=== PATIENT | male | born 1945 | race Caucasian/White ===

== ENCOUNTER 2017-05-29 14:03 | Inpatient (IN) | payer OTHER ==
[2017-05-29] MEDS ORDERED: PERCOCET TAB 5/325 MG PO PRN (16:21)
[2017-05-29] MEDS ORDERED: PHENERGAN INJ 25 MG IVP PRN (16:21)
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
[2017-05-29 16:49] VITALS: BMI 31.9
[2017-05-29 16:59] LABS: BASOPHILS % (AUTO) 0.4 % (0.2-1.0); EOSINOPHILS # (AUTO) 0.1 x10^3/uL (0.0-0.2); EOSINOPHILS % (AUTO) 1.4 % (0.9-2.9); HEMATOCRIT 44.3 % (42.0-54.0); HEMOGLOBIN 15.2 g/dL (13.5-18.0); LYMPHOCYTES # (AUTO) 1.1 X10^3/uL (1.3-2.9); LYMPHOCYTES % (AUTO) 24.5 % (21.0-51.0); MEAN CORPUSCULAR HEMOGLOBIN 31.9 pg (27.0-34.0); MEAN CORPUSCULAR HGB CONC 34.2 g/dL (33.0-35.0); MEAN CORPUSCULAR VOLUME 93.2 fL (80.0-100.0); MONOCYTES # (AUTO) 0.9 x10^3/uL (0.3-0.8); MONOCYTES % (AUTO) 18.8 % (0.0-13.0); NEUTROPHILS # (AUTO) 2.6 x10^3/uL (2.2-4.8); NEUTROPHILS % (AUTO) 54.9 % (42.0-75.0); PLATELET COUNT 128 X10^3/uL (150.0-450.0); RED BLOOD COUNT 4.75 X10^6/uL (4.7-6.0); RED CELL DISTRIBUTION WIDTH 14.4 % (11.6-16.5); WHITE BLOOD COUNT 4.7 X10^3/uL (3.6-10.0)
[2017-05-29 17:02] LABS: ALBUMIN 3.1 g/dL (3.4-5.0); CALCIUM 8.1 mg/dL (8.5-10.1); CARBON DIOXIDE 25.6 mmol/L (21-32); COR CA(FOR HYPOALB) 8.8 mg/dL (8.5-10.1); CREATININE 2.63 mg/dL (0.70-1.30); TOTAL PROTEIN 7.1 g/dL (6.4-8.2)
[2017-05-29] MEDS: NS 1000 ML 1,000 ML IV SCH (17:21)
[2017-05-29] MEDS: MORPHINE SULFATE INJ 2 MG INJ IVP PRN ×2 (18:05→22:48)
[2017-05-29] MEDS: ZOFRAN INJ 4 MG VIAL IVP PRN (18:06)
[2017-05-29] MEDS ORDERED: BENTYL CAP 10 MG PO PRN (20:14)
[2017-05-29] MEDS ORDERED: PHENERGAN TAB 25 MG PO PRN (20:14)
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
[2017-05-29] MEDS: COREG TAB 6.25 MG PO SCH (22:49)
[2017-05-30] MEDS: NS 1000 ML 1,000 ML IV SCH ×3 (03:31→21:04)
[2017-05-30 05:32] LABS: ALBUMIN 2.8 g/dL (3.4-5.0); CALCIUM 7.7 mg/dL (8.5-10.1); CARBON DIOXIDE 22.4 mmol/L (21-32); COR CA(FOR HYPOALB) 8.7 mg/dL (8.5-10.1); CREATININE 2.14 mg/dL (0.70-1.30); TOTAL PROTEIN 6.6 g/dL (6.4-8.2)
[2017-05-30 05:41] LABS: BASOPHILS % (AUTO) 0.4 % (0.2-1.0); EOSINOPHILS # (AUTO) 0.1 x10^3/uL (0.0-0.2); EOSINOPHILS % (AUTO) 2.1 % (0.9-2.9); HEMATOCRIT 41.2 % (42.0-54.0); HEMOGLOBIN 14.2 g/dL (13.5-18.0); LYMPHOCYTES # (AUTO) 1.4 X10^3/uL (1.3-2.9); LYMPHOCYTES % (AUTO) 27.6 % (21.0-51.0); MEAN CORPUSCULAR HEMOGLOBIN 31.7 pg (27.0-34.0); MEAN CORPUSCULAR HGB CONC 34.4 g/dL (33.0-35.0); MEAN CORPUSCULAR VOLUME 92.1 fL (80.0-100.0); MEAN PLATELET VOLUME 9.3 fL (7.4-11.0); MONOCYTES # (AUTO) 1.1 x10^3/uL (0.3-0.8); NEUTROPHILS # (AUTO) 2.4 x10^3/uL (2.2-4.8); NEUTROPHILS % (AUTO) 47.9 % (42.0-75.0); PLATELET COUNT 138 X10^3/uL (150.0-450.0); RED BLOOD COUNT 4.47 X10^6/uL (4.7-6.0); RED CELL DISTRIBUTION WIDTH 14.2 % (11.6-16.5)
[2017-05-30 06:22] LABS: BAND NEUTROPHILS % 13 % (0-10); PLATELET MORPHOLOGY COMMENT NORMAL (NORMAL)
[2017-05-30 07:42] LABS: BILIRUBIN,URINE NEGATIVE (NEGATIVE); BLOOD/HEMOGLOBIN,URINE 2+ (NEGATIVE); GLUCOSE, URINE NEGATIVE (NEGATIVE); KETONES,URINE NEGATIVE (NEGATIVE); LEUKOCYTE ESTERASE ,URINE NEGATIVE (NEGATIVE); NITRITES,URINE NEGATIVE (NEGATIVE); PROTEIN,URINE 4+ (NEGATIVE); UROBILINOGEN,URINE NORMAL (NORMAL)
[2017-05-30 07:53] LABS: APPEARANCE,URINE SLIGHTLY HAZY (CLEAR); BACTERIA,URINE TRACE /HPF (NEGATIVE); COLOR,URINE YELLOW (YELLOW); GRANULAR CASTS,URINE FEW /LPF (NEGATIVE); RBC,URINE 0-3 /HPF (NEGATIVE); SQUAMOUS EPITHELIAL CELL,UR RARE /HPF (NEGATIVE)
[2017-05-30] MEDS: COREG TAB 6.25 MG PO SCH ×2 (08:18→21:05)
[2017-05-30] MEDS: LASIX PO SCH (08:18)
[2017-05-30] MEDS: ZOFRAN INJ 4 MG VIAL IVP PRN (08:18)
[2017-05-30] MEDS: NORVASC TAB 5 MG PO SCH (08:18)
[2017-05-30] MEDS: MORPHINE SULFATE INJ 2 MG INJ IVP PRN ×2 (08:18→21:06)
[2017-05-30] MEDS ORDERED: PROTONIX TAB 40 MG PO SCH (09:00)
[2017-05-30] MEDS ORDERED: PATIENT'S HOME MEDICATION (Rosuvastatin Calcium [Rosuvastatin Calcium] 1 TAB) PO SCH (09:00)
[2017-05-30] MEDS: PREVACID PO SCH (10:41)
[2017-05-30] MEDS: CRESTOR TAB 10 MG PO SCH (10:41)
[2017-05-30] MEDS: ASPIRIN EC 81 MG PO SCH (10:41)
[2017-05-30] MEDS: ZYLOPRIM PO SCH (10:42)
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
[2017-05-31] MEDS: NS 1000 ML 1,000 ML IV SCH ×3 (01:14→22:01)
[2017-05-31] MEDS: SNACK - Diabetic Appropriate PO SCH ×2 (01:14→21:58)
[2017-05-31] MEDS: MORPHINE SULFATE INJ 2 MG INJ IVP PRN ×2 (04:57→12:07)
[2017-05-31 05:39] LABS: ALBUMIN 2.6 g/dL (3.4-5.0); CALCIUM 7.8 mg/dL (8.5-10.1); CARBON DIOXIDE 26.4 mmol/L (21-32); COR CA(FOR HYPOALB) 8.9 mg/dL (8.5-10.1); CREATININE 1.94 mg/dL (0.70-1.30); TOTAL PROTEIN 6.4 g/dL (6.4-8.2)
[2017-05-31 06:09] LABS: BASOPHILS % (AUTO) 0.2 % (0.2-1.0); EOSINOPHILS # (AUTO) 0.1 x10^3/uL (0.0-0.2); EOSINOPHILS % (AUTO) 1.1 % (0.9-2.9); HEMATOCRIT 40.3 % (42.0-54.0); HEMOGLOBIN 13.7 g/dL (13.5-18.0); LYMPHOCYTES # (AUTO) 1.4 X10^3/uL (1.3-2.9); LYMPHOCYTES % (AUTO) 23.1 % (21.0-51.0); MEAN CORPUSCULAR HEMOGLOBIN 31.5 pg (27.0-34.0); MEAN CORPUSCULAR HGB CONC 34.1 g/dL (33.0-35.0); MEAN CORPUSCULAR VOLUME 92.2 fL (80.0-100.0); MEAN PLATELET VOLUME 9.1 fL (7.4-11.0); MONOCYTES # (AUTO) 0.9 x10^3/uL (0.3-0.8); NEUTROPHILS # (AUTO) 3.5 x10^3/uL (2.2-4.8); NEUTROPHILS % (AUTO) 59.6 % (42.0-75.0); PLATELET COUNT 145 X10^3/uL (150.0-450.0); RED BLOOD COUNT 4.37 X10^6/uL (4.7-6.0); RED CELL DISTRIBUTION WIDTH 14.5 % (11.6-16.5); WHITE BLOOD COUNT 5.8 X10^3/uL (3.6-10.0)
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
[2017-05-31] MEDS: CRESTOR TAB 10 MG PO SCH (09:34)
[2017-05-31] MEDS: PREVACID PO SCH (09:34)
[2017-05-31] MEDS: LASIX PO SCH (09:34)
[2017-05-31] MEDS: NORVASC TAB 5 MG PO SCH (09:35)
[2017-05-31] MEDS: COREG TAB 6.25 MG PO SCH ×2 (09:35→21:55)
[2017-05-31] MEDS: ASPIRIN EC 81 MG PO SCH (09:35)
[2017-05-31] MEDS: ZYLOPRIM PO SCH (09:35)
[2017-05-31] MEDS: ZOFRAN INJ 4 MG VIAL IVP PRN (12:07)
[2017-05-31] MEDS: MYLICON TAB 80 MG CHEW PO SCH (21:54)
[2017-05-31] MEDS: PROTONIX INJ 40 MG VIAL IVP SCH ×2 (21:54)
[2017-06-01] MEDS: MYLICON TAB 80 MG CHEW PO SCH ×4 (02:47→21:05)
[2017-06-01 05:10] LABS: ALBUMIN 2.4 g/dL (3.4-5.0); CALCIUM 7.5 mg/dL (8.5-10.1); CARBON DIOXIDE 21.4 mmol/L (21-32); COR CA(FOR HYPOALB) 8.8 mg/dL (8.5-10.1); CREATININE 1.75 mg/dL (0.70-1.30); TOTAL PROTEIN 5.7 g/dL (6.4-8.2)
[2017-06-01 05:22] LABS: BASOPHILS % (AUTO) 0.4 % (0.2-1.0); EOSINOPHILS # (AUTO) 0.1 x10^3/uL (0.0-0.2); EOSINOPHILS % (AUTO) 1.1 % (0.9-2.9); HEMOGLOBIN 12.6 g/dL (13.5-18.0); LYMPHOCYTES # (AUTO) 1.7 X10^3/uL (1.3-2.9); LYMPHOCYTES % (AUTO) 22.7 % (21.0-51.0); MEAN CORPUSCULAR HEMOGLOBIN 31.7 pg (27.0-34.0); MEAN PLATELET VOLUME 8.8 fL (7.4-11.0); MONOCYTES % (AUTO) 13.6 % (0.0-13.0); NEUTROPHILS # (AUTO) 4.6 x10^3/uL (2.2-4.8); NEUTROPHILS % (AUTO) 62.2 % (42.0-75.0); PLATELET COUNT 157 X10^3/uL (150.0-450.0); RED BLOOD COUNT 3.98 X10^6/uL (4.7-6.0); RED CELL DISTRIBUTION WIDTH 14.4 % (11.6-16.5); WHITE BLOOD COUNT 7.4 X10^3/uL (3.6-10.0)
[2017-06-01] MEDS: NS 1000 ML 1,000 ML IV SCH ×3 (05:46→16:59)
[2017-06-01] MEDS: COREG TAB 6.25 MG PO SCH ×2 (08:34→20:59)
[2017-06-01] MEDS: CRESTOR TAB 10 MG PO SCH (08:34)
[2017-06-01] MEDS: ASPIRIN EC 81 MG PO SCH (08:34)
[2017-06-01] MEDS: NORVASC TAB 5 MG PO SCH (08:35)
[2017-06-01] MEDS: LASIX PO SCH (08:35)
[2017-06-01] MEDS: PROTONIX INJ 40 MG VIAL IVP SCH ×2 (08:35→21:01)
[2017-06-01] MEDS: ZYLOPRIM PO SCH (08:35)
[2017-06-01] MEDS: MORPHINE SULFATE INJ 2 MG INJ IVP PRN (16:39)
[2017-06-01] MEDS: SNACK - Diabetic Appropriate PO SCH (21:13)
--- NOTE | 2017-06-01 22:28 | PCM.PROG ---
Progress Note - Progress Note for Day of Date: 05/31/17 - Subjective Subjective: IS A PATIENT OF WHO WAS ADMITTED FOR ABDOMINAL PAIN. A CT ABD/PELVIS REPORTED SMALL BOWEL OBSTRUCTION. HE IS ALERT AND ORIENTED, LYING IN BED ON MORNING ROUNDS. HE IS NOTED WITH COMPLAINTS OF CONTINUED ABDOMINAL PAIN, HOWEVER, REPORTS FEELING BETTER THAN HE DID ON ADMISSION. PATIENTS IS AT BEDSIDE. ON EXAMINATION, LUNGS ARE CLEAR TO AUSCULTATION. ABDOMEN IS DISTENDED AND TENDER ON PALPATION. BOWEL SOUNDS ARE NOTED HYPERACTIVE IN ALL QUADRANTS. HE DENIES NAUSEA OR VOMITING. WE DISCUSSED WITH PATIENT RESULTS OF CT AND MRCP. WE DISCUSSED CONSULTING GENERAL SURGERY. PATIENT REPORTED THAT IF HE NEEDED SURGERY, HE WOULD LIKE TO BE TRANSFERRED TO IN [place]. PATIENT REPORTS THAT HAS PERFORMED HIS SURGERIES IN THE PAST. WE WILL NOT CONSULT AT THIS TIME. VITALS THIS AM ARE 97.9 -69-18-96%-154/76. LABS AND XRAY WERE OBTAINED. ABNORMAL LAB VALUES INCLUDE THE FOLLOWING: RBC 4.37, HCT 40.3, PLT COUNT 145, BUN 32, CREATININE 1.94, GLUCOSE 138, CALCIUM 7.8, TOTAL BILI 1.40, ALK PHOS 45, ALBUMIN 2.6. ABDOMEN XRAY REPORTED PARTIAL SMALL BOWEL OBSTRUCTION. WE WILL CONTINUE CURRENT PLAN OF CARE. WE PLAN TO RECHECK AM LABS AND CONTINUE TO MONITOR PATIENT. - Past Medical Family Social History Past Med/Fam/Surg Hx: No changes since H&P Allergies: Allergies iodine Allergy (Verified 05/29/17 16:29) - Review of Systems ROS: No change since H&P - Vital Signs and I&O's Vital Signs: Temperature 98.7 F Pulse Rate [Left Radial] 68 Respiratory Rate 18 Blood Pressure [Left Arm] 157/74 O2 Sat by Pulse Oximetry 94 Intake and Output: Intake & Output 05/30/17 05/31/17 06/01/17 06/02/17 11:59 11:59 11:59 11:59 Intake Total 1236 1040 540 240 Balance 1236 1040 540 240 - Physical Exam Oriented: Normal Eyes: Normal Ear: Normal Nose: Normal Throat: Normal Respiratory: Normal Cardiovascular: Normal : Normal Auscultation: Bowel Sounds: Increased, High Pitched Palpation: Normal Tenderness: Diffuse, Moderate Skin: Normal Musculoskeletal: Normal Psychiatric: Normal Mood Description: Calm Affect: Normal Speech Pattern: Clear, Appropriate - Laboratory and Diagnostics Result Diagrams: 06/01/17 04:25 06/01/17 04:25 Labs: Laboratory WBC 7.4 X10^3/uL (3.6-10.0) 06/01/17 04:25 RBC 3.98 X10^6/uL (4.7-6.0) L 06/01/17 04:25 Hgb 12.6 g/dL (13.5-18.0) L 06/01/17 04:25 Hct 37.0 % (42.0-54.0) L 06/01/17 04:25 MCV 93.0 fL (80.0-100.0) 06/01/17 04:25 MCH 31.7 pg (27.0-34.0) 06/01/17 04:25 MCHC 34.0 g/dL (33.0-35.0) 06/01/17 04:25 RDW 14.4 % (11.6-16.5) 06/01/17 04:25 Plt Count 157 X10^3/uL (150.0-450.0) 06/01/17 04:25 Plt Count Comment Adequate (ADEQUATE) 05/30/17 03:55 MPV 8.8 fL (7.4-11.0) 06/01/17 04:25 Neut % 62.2 % (42.0-75.0) 06/01/17 04:25 Lymph % 22.7 % (21.0-51.0) 06/01/17 04:25 [place] % 13.6 % (0.0-13.0) H 06/01/17 04:25 Eos % 1.1 % (0.9-2.9) 06/01/17 04:25 Baso % 0.4 % (0.2-1.0) 06/01/17 04:25 Neut # 4.6 x10^3/uL (2.2-4.8) 06/01/17 04:25 Lymph # 1.7 X10^3/uL (1.3-2.9) 06/01/17 04:25 [place] # 1.0 x10^3/uL (0.3-0.8) H 06/01/17 04:25 Eos # 0.1 x10^3/uL (0.0-0.2) 06/01/17 04:25 Baso # 0.0 X10^3/uL (0.0-0.1) 06/01/17 04:25 Absolute Nucleated RBC 0.1 /100WBC 06/01/17 04:25 Total Counted 100 05/30/17 03:55 Neutrophils % (Manual) 29 % (39-76) L 05/30/17 03:55 Band Neutrophils % 13 % (0-10) H 05/30/17 03:55 Lymphocytes % (Manual) 41 % (13-43) 05/30/17 03:55 Monocytes % (Manual) 13 % (4-9) H 05/30/17 03:55 Eosinophils % (Manual) 4 % (0-6) 05/30/17 03:55 Plt Morphology Comment Normal (NORMAL) 05/30/17 03:55 RBC Morphology Normal (NORMAL) 05/30/17 03:55 Sodium 141 mmol/L (136-145) 06/01/17 04:25 Corrected Sodium 142 mmol/L (136-145) 06/01/17 04:25 Potassium 4.1 mmol/L (3.5-5.1) 06/01/17 04:25 Chloride 110 mmol/L (98-107) H 06/01/17 04:25 Carbon Dioxide 21.4 mmol/L (21-32) 06/01/17 04:25 BUN 26 mg/dL (7-18) H 06/01/17 04:25 Creatinine 1.75 mg/dL (0.70-1.30) H 06/01/17 04:25 Est GFR (MDRD) Af Amer 50 (>60) L 06/01/17 04:25 Est GFR (MDRD) Non-Af 41 (>60) L 06/01/17 04:25 Glucose 129 mg/dL (65-99) H 06/01/17 04:25 POC Glucose (mg/dL) 126 mg/dL (65-99) H 05/30/17 20:06 Calcium 7.5 mg/dL (8.5-10.1) L 06/01/17 04:25 Corrected Calcium 8.8 mg/dL (8.5-10.1) 06/01/17 04:25 Total Bilirubin 1.30 mg/dL (0.2-1.0) H 06/01/17 04:25 AST 17 Units/L (15-37) 06/01/17 04:25 ALT 18 Units/L (12-78) 06/01/17 04:25 Alkaline Phosphatase 42 Units/L (46-116) L 06/01/17 04:25 Total Protein 5.7 g/dL (6.4-8.2) L 06/01/17 04:25 Albumin 2.4 g/dL (3.4-5.0) L 06/01/17 04:25 Globulin 3.3 g/dL (2.5-4.5) 06/01/17 04:25 Albumin/Globulin Ratio 0.7 Ratio (1.1-2.1) L 06/01/17 04:25 Amylase 42 Units/L (25-115) 06/01/17 04:25 Lipase 254 Units/L (73-393) 06/01/17 04:25 Specimen Type Clean catch urine 05/30/17 07:38 Urine Color Yellow (YELLOW) 05/30/17 07:38 Urine Appearance Slightly hazy (CLEAR) 05/30/17 07:38 Urine pH 5.0 (5.0 - 8.0) 05/30/17 07:38 Ur Specific [place] 1.020 (1.000-1.030) 05/30/17 07:38 Urine Protein 4+ (NEGATIVE) 05/30/17 07:38 Urine Glucose (UA) Negative (NEGATIVE) 05/30/17 07:38 Urine Ketones Negative (NEGATIVE) 05/30/17 07:38 Urine Occult Blood 2+ (NEGATIVE) 05/30/17 07:38 Urine Nitrite Negative (NEGATIVE) 05/30/17 07:38 Urine Bilirubin Negative (NEGATIVE) 05/30/17 07:38 Urine Urobilinogen Normal (NORMAL) 05/30/17 07:38 Ur Leukocyte Esterase Negative (NEGATIVE) 05/30/17 07:38 Urine RBC 0-3 /HPF (NEGATIVE) 05/30/17 07:38 Urine WBC 5-10 /HPF (NEGATIVE) 05/30/17 07:38 Ur Squamous Epith Cells Rare /HPF (NEGATIVE) 05/30/17 07:38 Urine Bacteria Trace /HPF (NEGATIVE) 05/30/17 07:38 Granular Casts Few /LPF (NEGATIVE) 05/30/17 07:38 Ur Culture Indicated? No/not indicated 05/30/17 07:38 Stool Description Y 05/29/17 21:33 Stl Occult Blood (IFOB) Negative (NEGATIVE) 05/29/17 21:33 - Plan (1) Small bowel obstruction Status: Acute Plan: CONTINUE TO MONITOR (2) Abdominal pain Status: Acute Qualifiers: Abdominal location: generalized Qualified Code(s): R10.84 - Generalized abdominal pain Plan: Morphine for control, CONTINUE TO MONITOR
--- NOTE | 2017-06-01 23:21 | PCM.PROG ---
Progress Note - Progress Note for Day of Date: 06/01/17 - Subjective Subjective: WAS ADMITTED FOR SMALL BOWEL OBSTRUCTION. HE IS A PATIENT OF . HE IS ALERT AND ORIENTED, LYING IN BED ON MORNING ROUNDS. HE IS NOTED WITH NO COMPLAINTS UPON ROUNDS. HE REPORTS FEELING WELL. ON EXAMINATION, ABDOMEN REMAINS DISTENDED. BOWEL SOUNDS ARE NORMAL IN ALL QUADRANTS. HE DENIES NAUSEA AND VOMITING. BILATERAL LUNGS ARE CLEAR TO AUSCULTATION. VITALS THIS AM ARE 97.6-71-18-95%-148/72. CBC AND CMP WERE OBTAINED. ABNORMAL LABS INCLUDE THE FOLLOWING: RBC 3.98, HGB 12.6, HCT 37, CHLORIDE 110, BUN 26, CREATININE 1.75, GLUCOSE 129, CALCIUM 7.5, TOTAL BILI 1.30 , ALK PHOS 42, TOTAL PROTEIN 5.7, ALBUMIN 2.4. WE WILL CONTINUE WITH CURRENT PLAN OF CARE, RECHECK AM LABS, AND CONTINUE TO MONITOR PATIENT. - Past Medical Family Social History Past Med/Fam/Surg Hx: No changes since H&P Allergies: Allergies iodine Allergy (Verified 05/29/17 16:29) - Review of Systems ROS: No change since H&P - Vital Signs and I&O's Vital Signs: Temperature 98.7 F Pulse Rate [Left Radial] 71 Respiratory Rate 20 Blood Pressure [Left Arm] 169/79 O2 Sat by Pulse Oximetry 97 Intake and Output: Intake & Output 05/30/17 05/31/17 06/01/17 06/02/17 11:59 11:59 11:59 11:59 Intake Total 1236 1040 540 240 Balance 1236 1040 540 240 - Physical Exam Oriented: Normal Eyes: Normal Ear: Normal Nose: Normal Throat: Normal Respiratory: Normal Cardiovascular: Normal : Normal Auscultation: Bowel Sounds: Increased, High Pitched Palpation: Normal Tenderness: Diffuse, Moderate Skin: Normal Musculoskeletal: Normal Psychiatric: Normal Mood Description: Calm Affect: Normal Speech Pattern: Clear, Appropriate - Laboratory and Diagnostics Result Diagrams: 06/01/17 04:25 06/01/17 04:25 Labs: Laboratory WBC 7.4 X10^3/uL (3.6-10.0) 06/01/17 04:25 RBC 3.98 X10^6/uL (4.7-6.0) L 06/01/17 04:25 Hgb 12.6 g/dL (13.5-18.0) L 06/01/17 04:25 Hct 37.0 % (42.0-54.0) L 06/01/17 04:25 MCV 93.0 fL (80.0-100.0) 06/01/17 04:25 MCH 31.7 pg (27.0-34.0) 06/01/17 04:25 MCHC 34.0 g/dL (33.0-35.0) 06/01/17 04:25 RDW 14.4 % (11.6-16.5) 06/01/17 04:25 Plt Count 157 X10^3/uL (150.0-450.0) 06/01/17 04:25 Plt Count Comment Adequate (ADEQUATE) 05/30/17 03:55 MPV 8.8 fL (7.4-11.0) 06/01/17 04:25 Neut % 62.2 % (42.0-75.0) 06/01/17 04:25 Lymph % 22.7 % (21.0-51.0) 06/01/17 04:25 [place] % 13.6 % (0.0-13.0) H 06/01/17 04:25 Eos % 1.1 % (0.9-2.9) 06/01/17 04:25 Baso % 0.4 % (0.2-1.0) 06/01/17 04:25 Neut # 4.6 x10^3/uL (2.2-4.8) 06/01/17 04:25 Lymph # 1.7 X10^3/uL (1.3-2.9) 06/01/17 04:25 [place] # 1.0 x10^3/uL (0.3-0.8) H 06/01/17 04:25 Eos # 0.1 x10^3/uL (0.0-0.2) 06/01/17 04:25 Baso # 0.0 X10^3/uL (0.0-0.1) 06/01/17 04:25 Absolute Nucleated RBC 0.1 /100WBC 06/01/17 04:25 Total Counted 100 05/30/17 03:55 Neutrophils % (Manual) 29 % (39-76) L 05/30/17 03:55 Band Neutrophils % 13 % (0-10) H 05/30/17 03:55 Lymphocytes % (Manual) 41 % (13-43) 05/30/17 03:55 Monocytes % (Manual) 13 % (4-9) H 05/30/17 03:55 Eosinophils % (Manual) 4 % (0-6) 05/30/17 03:55 Plt Morphology Comment Normal (NORMAL) 05/30/17 03:55 RBC Morphology Normal (NORMAL) 05/30/17 03:55 Sodium 141 mmol/L (136-145) 06/01/17 04:25 Corrected Sodium 142 mmol/L (136-145) 06/01/17 04:25 Potassium 4.1 mmol/L (3.5-5.1) 06/01/17 04:25 Chloride 110 mmol/L (98-107) H 06/01/17 04:25 Carbon Dioxide 21.4 mmol/L (21-32) 06/01/17 04:25 BUN 26 mg/dL (7-18) H 06/01/17 04:25 Creatinine 1.75 mg/dL (0.70-1.30) H 06/01/17 04:25 Est GFR (MDRD) Af Amer 50 (>60) L 06/01/17 04:25 Est GFR (MDRD) Non-Af 41 (>60) L 06/01/17 04:25 Glucose 129 mg/dL (65-99) H 06/01/17 04:25 POC Glucose (mg/dL) 126 mg/dL (65-99) H 05/30/17 20:06 Calcium 7.5 mg/dL (8.5-10.1) L 06/01/17 04:25 Corrected Calcium 8.8 mg/dL (8.5-10.1) 06/01/17 04:25 Total Bilirubin 1.30 mg/dL (0.2-1.0) H 06/01/17 04:25 AST 17 Units/L (15-37) 06/01/17 04:25 ALT 18 Units/L (12-78) 06/01/17 04:25 Alkaline Phosphatase 42 Units/L (46-116) L 06/01/17 04:25 Total Protein 5.7 g/dL (6.4-8.2) L 06/01/17 04:25 Albumin 2.4 g/dL (3.4-5.0) L 06/01/17 04:25 Globulin 3.3 g/dL (2.5-4.5) 06/01/17 04:25 Albumin/Globulin Ratio 0.7 Ratio (1.1-2.1) L 06/01/17 04:25 Amylase 42 Units/L (25-115) 06/01/17 04:25 Lipase 254 Units/L (73-393) 06/01/17 04:25 Specimen Type Clean catch urine 05/30/17 07:38 Urine Color Yellow (YELLOW) 05/30/17 07:38 Urine Appearance Slightly hazy (CLEAR) 05/30/17 07:38 Urine pH 5.0 (5.0 - 8.0) 05/30/17 07:38 Ur Specific [place] 1.020 (1.000-1.030) 05/30/17 07:38 Urine Protein 4+ (NEGATIVE) 05/30/17 07:38 Urine Glucose (UA) Negative (NEGATIVE) 05/30/17 07:38 Urine Ketones Negative (NEGATIVE) 05/30/17 07:38 Urine Occult Blood 2+ (NEGATIVE) 05/30/17 07:38 Urine Nitrite Negative (NEGATIVE) 05/30/17 07:38 Urine Bilirubin Negative (NEGATIVE) 05/30/17 07:38 Urine Urobilinogen Normal (NORMAL) 05/30/17 07:38 Ur Leukocyte Esterase Negative (NEGATIVE) 05/30/17 07:38 Urine RBC 0-3 /HPF (NEGATIVE) 05/30/17 07:38 Urine WBC 5-10 /HPF (NEGATIVE) 05/30/17 07:38 Ur Squamous Epith Cells Rare /HPF (NEGATIVE) 05/30/17 07:38 Urine Bacteria Trace /HPF (NEGATIVE) 05/30/17 07:38 Granular Casts Few /LPF (NEGATIVE) 05/30/17 07:38 Ur Culture Indicated? No/not indicated 05/30/17 07:38 Stool Description Y 05/29/17 21:33 Stl Occult Blood (IFOB) Negative (NEGATIVE) 05/29/17 21:33 - Plan (1) Small bowel obstruction Status: Acute Plan: CONTINUE TO MONITOR (2) Abdominal pain Status: Acute Qualifiers: Abdominal location: generalized Qualified Code(s): R10.84 - Generalized abdominal pain Plan: Morphine for control, CONTINUE TO MONITOR
[2017-06-02] MEDS: NS 1000 ML 1,000 ML IV SCH ×3 (00:34→20:37)
[2017-06-02] MEDS: MYLICON TAB 80 MG CHEW PO SCH ×4 (05:21→20:37)
[2017-06-02 05:41] LABS: BASOPHILS % (AUTO) 0.3 % (0.2-1.0); EOSINOPHILS % (AUTO) 0.5 % (0.9-2.9); HEMATOCRIT 35.6 % (42.0-54.0); HEMOGLOBIN 12.4 g/dL (13.5-18.0); LYMPHOCYTES # (AUTO) 1.2 X10^3/uL (1.3-2.9); LYMPHOCYTES % (AUTO) 14.7 % (21.0-51.0); MEAN CORPUSCULAR HEMOGLOBIN 31.7 pg (27.0-34.0); MEAN CORPUSCULAR HGB CONC 34.9 g/dL (33.0-35.0); MEAN CORPUSCULAR VOLUME 90.9 fL (80.0-100.0); MONOCYTES % (AUTO) 12.8 % (0.0-13.0); NEUTROPHILS # (AUTO) 5.8 x10^3/uL (2.2-4.8); NEUTROPHILS % (AUTO) 71.7 % (42.0-75.0); PLATELET COUNT 153 X10^3/uL (150.0-450.0); RED BLOOD COUNT 3.92 X10^6/uL (4.7-6.0); RED CELL DISTRIBUTION WIDTH 13.8 % (11.6-16.5); WHITE BLOOD COUNT 8.1 X10^3/uL (3.6-10.0)
[2017-06-02 05:52] LABS: ALBUMIN 2.3 g/dL (3.4-5.0); CALCIUM 7.7 mg/dL (8.5-10.1); CARBON DIOXIDE 22.4 mmol/L (21-32); COR CA(FOR HYPOALB) 9.1 mg/dL (8.5-10.1); CREATININE 1.53 mg/dL (0.70-1.30); TOTAL PROTEIN 5.6 g/dL (6.4-8.2)
[2017-06-02] MEDS: ZYLOPRIM PO SCH (08:25)
[2017-06-02] MEDS: CRESTOR TAB 10 MG PO SCH (08:25)
[2017-06-02] MEDS: COREG TAB 6.25 MG PO SCH ×2 (08:26→20:37)
[2017-06-02] MEDS: ASPIRIN EC 81 MG PO SCH (08:26)
[2017-06-02] MEDS: NORVASC TAB 5 MG PO SCH (08:26)
[2017-06-02] MEDS: LASIX PO SCH (08:26)
[2017-06-02] MEDS: PROTONIX INJ 40 MG VIAL IVP SCH ×2 (08:26→20:38)
--- NOTE | 2017-06-02 09:40 | RAD ---
HISTORY: Follow up small-bowel obstruction Study: Flat and upright abdomen, AP chest Comparison: May 31, 2017 Findings: Once again noted are multiple dilated loops of small bowel in the mid abdomen demonstrating air-fluid levels on the upright film. The degree of distention is slightly less than on the prior examination however partial small bowel obstruction is still likely present. No pneumoperitoneum is identified. N o abnormal masses abnormal calcifications are present. The chest is clear. IMPRESSION: Findings still consistent with at least a partial small bowel obstruction Reported By:
[2017-06-02] MEDS: SNACK - Diabetic Appropriate PO SCH (20:37)
[2017-06-03] MEDS: MYLICON TAB 80 MG CHEW PO SCH ×3 (04:00→15:05)
[2017-06-03] MEDS: NS 1000 ML 1,000 ML IV SCH ×3 (05:04→16:18)
[2017-06-03 05:20] LABS: BASOPHILS % (AUTO) 0.5 % (0.2-1.0); EOSINOPHILS # (AUTO) 0.1 x10^3/uL (0.0-0.2); EOSINOPHILS % (AUTO) 0.7 % (0.9-2.9); HEMATOCRIT 34.2 % (42.0-54.0); LYMPHOCYTES # (AUTO) 1.6 X10^3/uL (1.3-2.9); LYMPHOCYTES % (AUTO) 23.9 % (21.0-51.0); MEAN CORPUSCULAR HEMOGLOBIN 31.8 pg (27.0-34.0); MEAN CORPUSCULAR HGB CONC 35.1 g/dL (33.0-35.0); MEAN CORPUSCULAR VOLUME 90.5 fL (80.0-100.0); MEAN PLATELET VOLUME 8.6 fL (7.4-11.0); NEUTROPHILS % (AUTO) 59.9 % (42.0-75.0); PLATELET COUNT 161 X10^3/uL (150.0-450.0); RED BLOOD COUNT 3.77 X10^6/uL (4.7-6.0); WHITE BLOOD COUNT 6.7 X10^3/uL (3.6-10.0)
[2017-06-03 05:30] LABS: ALANINE AMINOTRANSFERASE 163 Units/L (12-78); ALBUMIN 2.3 g/dL (3.4-5.0); ALKALINE PHOSPHATASE 139 Units/L (46-116); AMYLASE 38 Units/L (25-115); ASPARTATE AMINO TRANSFERASE 165 Units/L (15-37); BLOOD UREA NITROGEN 14 mg/dL (7-18); CALCIUM 7.6 mg/dL (8.5-10.1); CARBON DIOXIDE 20.2 mmol/L (21-32); CHLORIDE 110 mmol/L (98-107); COR NA(FOR HYPERGLY) 142 mmol/L (136-145); CREATININE 1.43 mg/dL (0.70-1.30); LIPASE 597 Units/L (73-393); SODIUM 140 mmol/L (136-145); TOTAL PROTEIN 5.6 g/dL (6.4-8.2); eGFR BLACK RACES > 60 (>60); eGFR NON BLACK RACES 52 (>60)
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
[2017-06-03] MEDS: PROTONIX INJ 40 MG VIAL IVP SCH (09:50)
[2017-06-03] MEDS: NORVASC TAB 5 MG PO SCH (09:51)
[2017-06-03] MEDS: COREG TAB 6.25 MG PO SCH (09:51)
[2017-06-03] MEDS: CRESTOR TAB 10 MG PO SCH (09:51)
[2017-06-03] MEDS: LASIX PO SCH (09:51)
[2017-06-03] MEDS: ASPIRIN EC 81 MG PO SCH (09:51)
[2017-06-03] MEDS: ZYLOPRIM PO SCH (09:52)
[2017-06-03] MEDS: HumuLIN R SUBCUT PRN ×2 (12:43→17:40)
[2017-06-03 16:42] VITALS: BP 160/80
== END 2017-06-03 18:20 | disposition short-term general hospital (02) | DRG 390 ==
LOC: MED/SURG 14:03 → UNDOADMIN 14:03 → MED/SURG 15:17
PROVIDERS: ADMIT Internal Medicine; ATTEND Internal Medicine
DX: K56.69 Other intestinal obstruction (principal); R10.84 Generalized abdominal pain; R19.7 Diarrhea, unspecified; E11.65 Type 2 diabetes mellitus with hyperglycemia; I10 Essential (primary) hypertension
CPT/HCPCS: 36415; 74022; 74176; 74181; 80053; 81001; 82150; 82270; 83690; 85025; A4216; A4222; C9113; Q0169; J1815; J2270; J2405; J2550